=== PATIENT | male | born 1985 | race Two or more races ===

== ENCOUNTER 2020-03-17 08:50 | Inpatient (IN) | payer MEDICAID ==
[~2020-03-17] VITALS: Ht 160 cm; Wt 81.6 kg
[2020-03-17 09:05] VITALS: BP 113/83
[2020-03-17] MEDS ORDERED: guaiFENesin /DM 10ml syrup ORAL STA (09:20)
--- NOTE | 2020-03-17 09:28 | Emergency Room Report ---
History of Present Illness General Chief Complaint: Flu Like Symptoms Source: Patient Present Illness HPI The patient has been ill since Wednesday. He has had a cough, vomiting and some loose stools that are better now. He has been taking TheraFlu which is helped. The cough is persistent and he gets short of breath when he is walking. The patient is felt feverish. This is been helped by TheraFlu. He feels generalized weakness. Has a headache when he coughs. No rashes. 3 other family members are ill along with him. No sore throat, chest pain, palpitations, dysuria, abdominal pain, joint pain, rashes, depression, anxiety, visual changes, dizziness. 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 Patient History Past Medical History: see triage record Social History: Denies: smoking, alcohol use, drug use Social History Narrative [place] and lives with other family members who have similar illness Reviewed Nursing Documentation: PMH: Agreed; PSxH: Agreed Nursing Documentation-PMH Past Medical History: No Stated History Review of Systems All Other Systems: negative except mentioned in HPI Physical Exam Vital Signs Date Time Temp Pulse Resp B/P (MAP) Pulse Ox O2 Delivery O2 Flow Rate FiO2 03/17/20 09:01 99.0 97 19 113/83 (93) 94 Room Air Sp02 EP Interpretation: reviewed, abnormal - Interpreted as low by me General Appearance: alert, non-toxic, other - Ill-appearing Head: normocephalic Eyes: bilateral eye normal inspection, bilateral eye PERRL, bilateral eye EOMI ENT: moist mucus membranes Neck: supple, no meningismus Respiratory: decreased breath sounds, crackles, rales Cardiovascular #1: regular rate, rhythm, no edema Cardiovascular #2: 2+ radial (R) Gastrointestinal: normal inspection, normal bowel sounds, non tender, no mass, non-distended Genitourinary: no CVA tenderness Musculoskeletal: back normal, normal range of motion, no calf tenderness, gait/station normal Neurologic: alert, oriented x3 Psychiatric: mood/affect normal Skin: no rash, warm/dry Medical Decision Making Diagnostic Impression: Primary Impression: Pneumonia due to COVID-19 virus Additional Impressions: Hypoxia Elevated d-dimer ER Course Patient presents with vomiting diarrhea cough and dyspnea on exertion. Differential includes Covid pneumonia, COVID-19 upper respiratory infection, other viral infection, pulmonary embolus amongst others. Based on history and vital signs COVID-19 pneumonia highly suspected. Covid testing undertaken. In addition EKG, chest x-ray and labs obtained. EKG no injury. Chest x-ray bilateral infiltrates. Labs with low white count and lymphopenia. Elevated inflammatory markers. Elevated D-dimer. COVID-19 test positive. Exertional oxygen saturation drops to 89% and heart rate increases to 120. Patient given dexamethasone, azithromycin and Rocephin. Due to exertional dyspnea and tachycardia and evidence of Covid pneumonia patient admitted to the hospital. Laboratory Tests Test 03/17/20 11:10 03/17/20 12:38 White Blood Count 5.3 K/UL (4.8-10.8) Red Blood Count 5.52 M/UL (4.70-6.10) Hemoglobin 16.2 G/DL (14.2-18.0) Hematocrit 47.0 % (42.0-52.0) Mean Corpuscular Volume 85 FL (80-99) Mean Corpuscular Hemoglobin 29.4 PG (27.0-31.0) Mean Corpuscular Hemoglobin Concent 34.5 G/DL (32.0-36.0) Red Cell Distribution Width 13.4 % (11.6-14.8) Platelet Count 215 K/UL (150-450) Mean Platelet Volume 10.3 FL (6.5-10.1) H Neutrophils (%) (Auto) 73.1 % (45.0-75.0) Lymphocytes (%) (Auto) 17.7 % (20.0-45.0) L Monocytes (%) (Auto) 8.5 % (1.0-10.0) Eosinophils (%) (Auto) 0.3 % (0.0-3.0) Basophils (%) (Auto) 0.5 % (0.0-2.0) Prothrombin Time 11.7 SEC (9.30-11.50) H Prothrombin Time INR 1.1 (0.9-1.1) Activated Partial Thromboplast Time 25 SEC (23-33) D-Dimer 0.67 mg/L FEU (0.00-0.49) H Sodium Level 132 MMOL/L (136-145) L Potassium Level 3.2 MMOL/L (3.5-5.1) L Chloride Level 95 MMOL/L (98-107) L Carbon Dioxide Level 27 MMOL/L (21-32) Blood Urea Nitrogen 10 mg/dL (7-18) Creatinine 1.0 MG/DL (0.55-1.30) Estimated Glomerular Filtration Rate > 60 mL/min (>60) Glucose Level 120 MG/DL (74-106) H Lactic Acid Level 1.90 mmol/L (0.4-2.0) Calcium Level 8.2 MG/DL (8.5-10.1) L Magnesium Level 2.7 MG/DL (1.8-2.4) H Ferritin 995 NG/ML (8-388) H Total Bilirubin 0.9 MG/DL (0.2-1.0) Aspartate Amino Transferase (AST) 174 U/L (15-37) H Alanine Aminotransferase (ALT) 288 U/L (12-78) H Alkaline Phosphatase 98 U/L (46-116) Lactate Dehydrogenase 351 U/L (81-234) H Total Creatine Kinase 81 U/L (26-308) Troponin I 0.000 ng/mL (0.000-0.056) C-Reactive Protein, Quantitative 4.3 mg/dL (0.00-0.90) H Pro-B-Type Natriuretic Peptide 12 pg/mL (0-125) Total Protein 8.2 G/DL (6.4-8.2) Albumin 3.0 G/DL (3.4-5.0) L Globulin 5.2 g/dL Albumin/Globulin Ratio 0.6 (1.0-2.7) L Lipase 370 U/L (73-393) Urine Color Brown Urine Appearance Clear Urine pH 5 (4.5-8.0) Urine Specific [place] 1.020 (1.005-1.035) Urine Protein 3+ (NEGATIVE) H Urine Glucose (UA) Negative (NEGATIVE) Urine Ketones 2+ (NEGATIVE) H Urine Blood Negative (NEGATIVE) Urine Nitrite Negative (NEGATIVE) Urine Bilirubin 1+ (NEGATIVE) H Urine Ictotest Negative (NEGATIVE) Urine Urobilinogen 4 MG/DL (0.0-1.0) H Urine Leukocyte Esterase 1+ (NEGATIVE) H Urine RBC 0-2 /HPF (0 - 0) H Urine WBC 2-4 /HPF (0 - 0) Urine Squamous Epithelial Cells Occasional /LPF Urine Bacteria Occasional /HPF (NONE) EKG Diagnostic Results Rate: normal Rhythm: NSR ST Segments: no acute changes - Nonspecific ST-T wave changes Rhythm Strip Diag. Results EP Interpretation: yes Rhythm: NSR, no PVC's, no ectopy Chest X-Ray Diagnostic Results Chest X-Ray Diagnostic Results : Chest X-Ray Ordered: Yes # of Views/Limited/Complete: 1 View Indication: Shortness of Breath Interpretation: no effusion, no pneumothorax, other - Bilateral infiltrates Impression: Other Electronically Signed by: Electronically signed by Gerry Tuttle MD Last Vital Signs Date Time Temp Pulse Resp B/P (MAP) Pulse Ox O2 Delivery O2 Flow Rate FiO2 03/17/20 20:00 98.1 84 20 113/72 (86) 95 03/17/20 15:21 Room Air Status: unchanged Disposition: ADMITTED INPATIENT Condition: Serious Scripts No Active Prescriptions or Reported Meds eGrry Tuttle MD Mar 17, 2020 09:28
[2020-03-17] MEDS ORDERED: dexAMETHasone 10mg/ml Inj IV ONE (10:45)
[2020-03-17] MEDS ORDERED: cefTRIAXone 1 GM in NS 55 ML IV ONE (10:45)
[2020-03-17] MEDS ORDERED: Azithromycin 500 MG in NS 275 ML IVPB ONE (10:45)
--- NOTE | 2020-03-17 11:06 | Diagnostic Imaging Report ---
EXAM: XR Chest, 1 View CLINICAL HISTORY: COUGH TECHNIQUE: Frontal view of the chest. COMPARISON: None FINDINGS: Hardware: None. Lungs/pleura: Patchy opacities throughout the lungs. No pleural effusion or pneumothorax. Heart/mediastinum: Borderline size of the cardiac silhouette. Soft tissues: Unremarkable. Bones: No acute fracture. Upper abdomen: Normal. IMPRESSION: Patchy opacity throughout the lungs, concerning for viral pneumonia such as Covid 19 infection.
[2020-03-17 11:36] LABS: INR 1.1 (0.9-1.1)
[2020-03-17 11:42] LABS: BASOPHILS % (AUTO) 0.5 % (0.0-2.0); EOSINOPHILS % (AUTO) 0.3 % (0.0-3.0); HEMOGLOBIN 16.2 G/DL (14.2-18.0); LYMPHOCYTES % (AUTO) 17.7 % (20.0-45.0); MEAN CORPUSCULAR VOLUME 85 FL (80-99); MONOCYTES % (AUTO) 8.5 % (1.0-10.0); NEUTROPHILS % (AUTO) 73.1 % (45.0-75.0); PLATELET COUNT 215 K/UL (150-450); RED BLOOD COUNT 5.52 M/UL (4.70-6.10); RED CELL DISTRIBUTION WIDTH 13.4 % (11.6-14.8); WHITE BLOOD COUNT 5.3 K/UL (4.8-10.8)
[2020-03-17 11:55] LABS: ALANINE AMINOTRANSFERASE 288 U/L (12-78); ALBUMIN/GLOBULIN RATIO 0.6 (1.0-2.7); ALKALINE PHOSPHATASE 98 U/L (46-116); ASPARTATE AMINO TRANSFERASE 174 U/L (15-37); BILIRUBIN,TOTAL 0.9 MG/DL (0.2-1.0); BLOOD UREA NITROGEN 10 mg/dL (7-18); CALCIUM 8.2 MG/DL (8.5-10.1); CARBON DIOXIDE 27 MMOL/L (21-32); CHLORIDE 95 MMOL/L (98-107); CREATINE KINASE 81 U/L (26-308); FERRITIN 995 NG/ML (8-388); LACTATE DEHYDROGENASE 351 U/L (81-234); POTASSIUM 3.2 MMOL/L (3.5-5.1); SODIUM 132 MMOL/L (136-145)
[2020-03-17 12:50] VITALS: BP 128/79
[2020-03-17 13:16] LABS: APPEARANCE,URINE CLEAR; BILIRUBIN, URINE 1+ (NEGATIVE); COLOR,URINE BROWN; GLUCOSE, URINE (UA) NEGATIVE (NEGATIVE); KETONES,URINE 2+ (NEGATIVE); LEUKOCYTE ESTERASE ,URINE 1+ (NEGATIVE); NITRITE,URINE NEGATIVE (NEGATIVE); PH,URINE 5 (4.5-8.0); PROTEIN,URINE 3+ (NEGATIVE); UROBILINOGEN,URINE 4 MG/DL (0.0-1.0)
[2020-03-17 15:00] VITALS: BP 123/79
[2020-03-17 20:00] VITALS: BP 113/72
--- NOTE | 2020-03-17 21:30 | History and Physical Report ---
DATE OF ADMISSION: 03/17/2020 HISTORY OF PRESENT ILLNESS: This is a young 34-year-old male, came with mild cough and short of breath. The patient was found to have a COVID pneumonia. He was admitted on medical floor. The patient currently still has cough, but no fever, no chills. PAST MEDICAL HISTORY: None. ALLERGIES: None. FAMILY HISTORY: Noncontributory. SOCIAL HISTORY: Lives at home. PHYSICAL EXAMINATION: GENERAL: This is a young male, currently comfortable. VITAL SIGNS: Blood pressure 123/79, pulse 85, respirations 22, temperature 98.1, saturation 94%. HEENT: NAD. CHEST: Bilateral few crackles. CARDIOVASCULAR: Regular rhythm. ABDOMEN: Soft. Positive bowel sounds. EXTREMITIES: CCE. NEUROLOGICAL: No focal deficit. LABORATORY AND DIAGNOSTIC DATA: White count is 5.3. Chemistry, sodium 132, potassium 3.2, BUN 10, creatinine 1, magnesium 2.7. Ferritin 99.5. Troponins are negative. C-reactive protein was 4.3. His chest x-ray showing patchy opacity throughout the lung pneumonia. ASSESSMENT: 1. COVID pneumonia. 2. Hypokalemia. 3. Hyponatremia. PLAN: Admit on medical floor. Start IV antibiotics, ceftriaxone and azithromycin. Tylenol, Decadron. Consider ID consult. Continue oxygenation if needed. Delta Cervantes M.D. DR: ELENA JOB#: [id number] CC:
[2020-03-18] VITALS (7 sets, daily range): BP systolic 105–116; BP diastolic 57–78
[2020-03-18] MEDS ORDERED: Azithromycin 500 MG in D5W 275 ML IV SCH (11:00)
[2020-03-18] MEDS ORDERED: cefTRIAXone 1 GM in D5W 55 ML IVPB SCH (11:00)
--- NOTE | 2020-03-18 12:04 | General Progress Note ---
Subjective Date patient seen: Mar 18, 2020 Constitutional: Reports: weakness HEENT: Reports: no symptoms Cardiovascular: Reports: no symptoms Respiratory: Reports: cough, orthopnea, shortness of breath Gastrointestinal/Abdominal: Reports: no symptoms Neurologic/Psychiatric: Reports: weakness Endocrine: Reports: no symptoms Allergies: Coded Allergies: No Known Allergies (Unverified , 03/17/20) Subjective sitting at bedside Objective Last 24 Hour Vital Signs Date Time Temp Pulse Resp B/P (MAP) Pulse Ox O2 Delivery O2 Flow Rate FiO2 03/18/20 08:00 97.0 80 18 110/57 (74) 93 03/18/20 04:00 98.1 83 20 116/76 (89) 95 03/18/20 00:00 98.0 81 20 111/69 (83) 95 03/17/20 21:00 Room Air 03/17/20 20:00 98.1 84 20 113/72 (86) 95 03/17/20 15:21 Room Air 03/17/20 15:00 98.1 85 22 123/79 (94) 94 03/17/20 13:10 99.0 89 22 128/79 96 Room Air 03/17/20 12:50 99.0 89 22 128/79 96 Room Air Intake and Output 03/17/20 03/18/20 19:00 07:00 Intake Total 1910 ml 1100 ml Balance 1910 ml 1100 ml Intake Oral 480 ml 200 ml IV Total 1430 ml 900 ml # Voids 3 4 # Bowel Movements 1 Laboratory Tests 03/17/20 12:38: Urine Color Brown, Urine Appearance Clear, Urine pH 5, Urine Specific [place] 1.020, Urine Protein 3+H, Urine Glucose (UA) Negative, Urine Ketones 2+H, Urine Blood Negative, Urine Nitrite Negative, Urine Bilirubin 1+H, Urine Ictotest Negative, Urine Urobilinogen 4H, Urine Leukocyte Esterase 1+H, Urine RBC 0-2H, Urine WBC 2-4, Urine Squamous Epithelial Cells Occasional, Urine Bacteria Occasional Height (Feet): 5 Height (Inches): 3.00 Weight (Pounds): 180 General Appearance: no apparent distress EENT: PERRL/EOMI Neck: supple Cardiovascular: regular rhythm Respiratory/Chest: crackles/rales, rhonchi - bilaterally Abdomen: non tender, soft Pelvis: normal external exam Genitourinary/Rectal: normal genital exam Extremities: non-tender 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
--- NOTE | 2020-03-18 16:15 | Consultation ---
DATE OF CONSULTATION: 03/18/2020 INFECTIOUS DISEASES CONSULTATION CONSULTING PHYSICIAN: Ariella Mahajan MD. REFERRING PHYSICIAN: Delta Cervantes MD. REASON FOR CONSULTATION: COVID-19 pneumonia. HISTORY OF PRESENT ILLNESS: This is a 34-year-old gentleman with no significant past medical history who came in with some mild cough, shortness of breath, and mild diarrhea. He was found to have COVID-19 pneumonia and an Infectious Diseases consultation has been obtained for antibiotics. PAST MEDICAL HISTORY: Nothing significant. SOCIAL HISTORY: He does not smoke, drink, or use drugs. FAMILY HISTORY: Noncontributory. REVIEW OF SYSTEMS: RESPIRATORY: No fever or chills. He denies any cough currently. No shortness of breath. No chest pain. CARDIAC: No chest pain. No palpitation. No dizziness. No syncope. GASTROINTESTINAL: No nausea. No vomiting. He does have diarrhea. MEDICATIONS: As an inpatient, he is on ceftriaxone, azithromycin, and Tylenol. ALLERGIES: No known drug allergies. PHYSICAL EXAMINATION: VITAL SIGNS: Temperature 97, T-max of 99, pulse of 80, respiratory rate 18, blood pressure 110/57, O2 saturation of 93% on room air. Examination deferred due to COVID-19. LABORATORY AND DIAGNOSTIC DATA: White count 5.3, hemoglobin 16.2, hematocrit 47, MCV 85, platelet count of 215, neutrophils of 73%. Sodium 132, potassium 3.2, chloride 95, bicarb 27, BUN 10, creatinine 1, glucose 120, calcium 8.2, ferritin 995. Total bilirubin 0.9, AST 174, ALT 288, alkaline phosphatase 98. LDH 351. CK of 81. Troponin 0. C-reactive protein 4.3. Beta natriuretic peptide 12. Total protein 8.2, albumin 3. Lipase of 370. UA showing 2 to 4 white cells. Chest x-ray is showing patchy opacity throughout the lungs concerning for viral pneumonia. ASSESSMENT: This is a 34-year-old gentleman with no significant past medical history, who comes in with mild cough, shortness of breath, diarrhea and is found to have. 1. COVID-19 pneumonia. He is on room air with O2 saturation of 93%. 2. Fevers improving. 3. Elevated liver function tests. PLAN: 1. Discontinue ceftriaxone and azithromycin. 2. Continue isolation. 3. We will follow up patient clinically. I would like to thank, Dr. Cervantes, for this consultation. Ariella Mahajan M.D. DR: Amanda JOB#: [id number] CC: Delta Cervantes M.D.; Fax#: [phone]
[2020-03-18] MEDS: Vancomycin 1.25gm Premix IVPB SCH (16:47)
[2020-03-19 04:00] VITALS: BP 108/68
[2020-03-19] MEDS: Vancomycin 1.25gm Premix IVPB SCH ×2 (04:00→16:17)
[2020-03-19 08:00] VITALS: BP 105/67
--- NOTE | 2020-03-19 11:19 | Infectious Diseases Prog Note ---
Assessment/Plan Assessment/Plan antibiotics : vancomycin iv A 1. COVID-19 pneumonia. on room air with O2 saturation of 95%. 2. Fevers improving. 3. Elevated liver function tests 4. gram positive ? sepsis P 1. iv vancomycin started 2. will follow up cultures 3. continue isolation Subjective Constitutional: Denies: fever, chills Respiratory: Reports: dry cough - mild; Denies: shortness of breath Gastrointestinal/Abdominal: Denies: nausea, vomiting, diarrhea Musculoskeletal: Denies: pain Allergies: Coded Allergies: No Known Allergies (Unverified , 03/17/20) Objective Last 24 Hour Vital Signs Date Time Temp Pulse Resp B/P (MAP) Pulse Ox O2 Delivery O2 Flow Rate FiO2 03/19/20 09:00 Room Air 03/19/20 08:00 99.4 86 18 105/67 (80) 94 03/19/20 04:00 97.9 82 16 108/68 (81) 92 03/18/20 23:56 98.1 77 16 108/78 (88) 95 03/18/20 20:17 Room Air 03/18/20 20:00 98.4 77 18 105/62 (76) 96 03/18/20 16:00 98.1 68 18 111/65 (80) 97 03/18/20 12:00 98.2 61 18 107/65 (79) 95 Height (Feet): 5 Height (Inches): 3.00 Weight (Pounds): 180 Microbiology Date/Time Source Procedure Growth Status 03/17/20 11:10 Blood Blood Culture - Preliminary Resulted 03/17/20 11:10 Blood Blood Culture - Preliminary NO GROWTH AFTER 24 HOURS Resulted Current Medications Medications (Trade) Dose Ordered Sig/Sari Route PRN Reason Start Time Stop Time Status Last Admin Dose Admin Acetaminophen (Tylenol) 650 mg Q4H PRN ORAL Mild Pain (Pain Scale 1-3) 03/17/20 16:00 04/16/20 15:59 Sodium Chloride 1,000 ml @ 100 mls/hr Q10H IV 03/17/20 16:00 04/16/20 15:59 03/19/20 04:07 Vancomycin HCl 250 ml @ 166.667 mls/hr Q12H IVPB 03/18/20 16:00 03/23/20 15:59 03/19/20 04:00 Vancomycin HCl ([facility] pharmacy to dose) 1 ea DAILY PRN [facility] TO DOSE 03/18/20 14:30 04/17/20 14:29 Ariella Mahajan MD Mar 19, 2020 11:19
[2020-03-19 12:00] VITALS: BP 153/91
--- NOTE | 2020-03-19 15:49 | General Progress Note ---
Subjective Allergies: Coded Allergies: No Known Allergies (Unverified , 03/17/20) Subjective sitting at bedside Objective Last 24 Hour Vital Signs Date Time Temp Pulse Resp B/P (MAP) Pulse Ox O2 Delivery O2 Flow Rate FiO2 03/19/20 12:00 98.1 83 18 153/91 (111) 95 03/19/20 09:00 Room Air 03/19/20 08:00 99.4 86 18 105/67 (80) 94 03/19/20 04:00 97.9 82 16 108/68 (81) 92 03/18/20 23:56 98.1 77 16 108/78 (88) 95 03/18/20 20:17 Room Air 03/18/20 20:00 98.4 77 18 105/62 (76) 96 03/18/20 16:00 98.1 68 18 111/65 (80) 97 Intake and Output 03/18/20 03/19/20 19:00 07:00 Intake Total 1091.667 ml Balance 1091.667 ml Intake Oral 120 ml IV Total 971.667 ml Height (Feet): 5 Height (Inches): 3.00 Weight (Pounds): 180 General Appearance: alert EENT: PERRL/EOMI Neck: supple Cardiovascular: regular rhythm Respiratory/Chest: normal breath sounds Abdomen: non tender, soft Assessment/Plan Status: doing well Assessment/Plan: 1 covid pna iv abx iv decadrone id and pulmo consult no need o2 asymtomatic dc home in isolation for 8 days fu pcp 1 week Adi Cervantes MD Mar 19, 2020 15:49
[2020-03-19 16:00] VITALS: BP 119/76
--- NOTE | 2020-03-22 11:23 | Discharge Summary ---
Discharge Summary Discharge Summary _ Date of admission: 03/17/2020 Date of discharge: 03/19/[address] Cervantes Reason for hospitalization: Flu like symptoms associated with cough, shortness of breath, fever, headache, generalized weakness. Consultants: Infectious disease Dr. Soler Significant finding: A 34-year-old male without significant past medical history presented to ED with a 4-day history of cough, vomiting, fever, generalized weakness. He reported 3 other family members who were ill at home. He denied sore throat, chest pain, palpitation, dysuria, abdominal pain, joint pain, rashes, depression, anxiety, visual changes, dizziness. Procedures performed CBC was grossly unremarkable. Chemistries showed sodium 132, potassium 3.2, chloride 95, glucose 120, calcium 8.2, magnesium 2.7, ferritin 995 AST 174, ALT 288, CRP 4.3. D-dimer 0.67. Urinalysis showed 3+ protein, 2+ ketones, 1+ bilirubin, 1+ leukocyte esterase, 0-2 RBC. COVID-19 test was negative. Chest x-ray revealed patchy opacities throughout the lungs concerning for viral pneumonia. Hospital course/treatment rendered Robitussin was added for cough. Tylenol for fever. Patient was on short course of antibiotics and steroid for shortness of breath and chest x-ray result consistent with pneumonia Blood culture revealed gram-positive cocci. IV vancomycin was added Over patient's course of stay his shortness of breath was resolved along with cough and fever. Condition of patient on discharge Patient was discharged home via family car in stable condition. He was alert and oriented with no respiratory distress on room air. Discharge instruction Discharge home. Self quarantine for 7 days. Follow-up with primary care within 1 week. Follow-up with Dr. Cervantes if the patient does not have a primary care provider outside. Dr. Cervantes's office number provided. Final diagnoses Pneumonia Elevated LFTs I have been assigned to dictate discharge summary for this account. I was not involved in the patient's management Brad Santiago Mar 22, 2020 11:23
== END 2020-03-19 17:50 | disposition home or self-care (01) | DRG 139 ==
LOC: EMR 09:43 → EDBEDREQ 11:58 → 4E 12:18 → EDBEDREQ 12:51
DX: J18.9 Pneumonia, unspecified organism (principal); E87.6 Hypokalemia; E87.1 Hypo-osmolality and hyponatremia; R79.89 Other specified abnormal findings of blood chemistry
CPT/HCPCS: 36415; 71045; 80053; 81003; 82550; 82728; 83605; 83615; 83690; 83735; 83880; 84484; 85025; 85379; 85610; 85730; 86140; 87040; 87181; 93005; 96361; 96365; 96367; 96375; 99285; J7030; J8499